=== PATIENT | female | born 1985 | race Caucasian/White ===

== ENCOUNTER 2016-07-24 08:57 | Emergency (ER) | payer MEDICAID ==
--- NOTE | 2016-07-24 10:22 | ER Document Report ---
ED GI/ - General Chief Complaint: Vaginal Bleeding Stated Complaint: VAGINAL BLEEDING Notes: Patient is a 31-year-old female presents emergency Department complaining of vaginal bleeding with clots for about 2 weeks. Patient states that she has a history of irregular. Her last one was in May lasting about 7 days. She also admits that she has abdominal pain with nausea, vomiting which is worse in the right lower side. Admits to diarrhea since yesterday without any evidence of dark stools. Able to tolerate food. 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 IN LAST 30 DAYS: No - Related Data Allergies/Adverse Reactions: ibuprofen [Ibuprofen] Allergy (Intermediate, Verified 07/24/16 09:15) lips swell Penicillins Allergy (Intermediate, Verified 07/24/16 09:15) rash Home Medications: Current Home Medications Clonazepam 2 mg PO BID 07/24/16 [History] Lurasidone HCl [Latuda] 40 mg PO DAILY 07/24/16 [History] Past Medical History - General Last Menstrual Period: 07/12/16 - Social History Smoking Status: Current Every Day Smoker Chew tobacco use (# tins/day): No Frequency of alcohol use: None Drug Abuse: None Family History: Hyperlipidemia, Hypertension Patient has suicidal ideation: No Patient has homicidal ideation: No Renal/ Medical History: Denies: Hx Peritoneal Dialysis Musculoskeltal Medical History: Reports Hx Musculoskeletal Trauma Psychiatric Medical History: Reports: Hx Bipolar Disorder, Hx Depression Past Surgical History: Reports: Hx Oral Surgery - [place] teeth remaining, Hx Tubal Ligation - x 2 - Immunizations Hx Diphtheria, Pertussis, Tetanus Vaccination: No - pt refused Review of Systems - Review of Systems Constitutional: No symptoms reported EENT: No symptoms reported Cardiovascular: No symptoms reported Respiratory: No symptoms reported Gastrointestinal: See HPI Genitourinary: See HPI Female Genitourinary: No symptoms reported Musculoskeletal: No symptoms reported Skin: No symptoms reported Hematologic/Lymphatic: No symptoms reported Neurological/Psychological: No symptoms reported Physical Exam - Vital signs Vitals: Temp Pulse Resp BP Pulse Ox 97.8 F 93 18 126/80 H 99 07/24/16 09:14 07/24/16 09:14 07/24/16 09:14 07/24/16 09:14 07/24/16 09:14 - Notes Notes: PHYSICAL EXAM GENERAL: Alert, interacts well. HEAD: Normocephalic, atraumatic. EYES: Pupils equal, round, and reactive to light. Extraocular movements intact. ENT: Oral mucosa moist, tongue midline. NECK: Full range of motion. Supple. Trachea midline. LUNGS: Clear to auscultation bilaterally, no wheezes, rales, or rhonchi. No respiratory distress. HEART: Regular rate and rhythm. No murmurs, gallops, or rubs. ABDOMEN: Soft, nondistended, nontender. No guarding, rebound, or rigidity.. Bowel sounds present in all 4 quadrants. FEMALE : Normal external exam. No evidence of lesions, lacerations, bruising or vesicles. Speculum exam normal cervix closed. No evidence of vaginal discharge with odor. No evidence of lesions. Evidence of vaginal bleeding. Bimanual exam normal no cervical motion tenderness. No adnexal mass or adnexal tenderness. EXTREMITIES: Moves all 4 extremities spontaneously. No edema, radial and dorsalis pedis pulses 2/4 bilaterally. No cyanosis. NEUROLOGICAL: Alert and oriented x3. Normal speech. PSYCH: Normal affect, normal mood. SKIN: Warm, dry, normal turgor. No rashes or lesions noted. Course - Re-evaluation Re-evalutation: 07/24/16 13:17 Patient is a 31-year-old female presents complaining of vaginal bleeding for 2 months. Pelvic reveals vaginal bleeding with no other concerns. Abdominal ultrasound does not reveal any evidence of uterine fibroids a small left ovarian cyst. Discharge patient home with diagnosis of dysfunctional uterine bleeding on Provera and can follow-up with ROLLER LEVELER OPERATOR this week. - Vital Signs Vital signs: Temp Pulse Resp BP Pulse Ox 97.8 F 93 18 126/80 H 99 07/24/16 09:14 07/24/16 09:14 07/24/16 09:21 07/24/16 09:14 07/24/16 09:14 - Laboratory Result Diagrams: 07/24/16 10:55 07/24/16 10:55 Laboratory results interpreted by me: 07/24/16 07/24/16 10:30 10:55 WBC 16.2 H RBC 5.35 H RDW 14.7 H Absolute Neutrophils 10.1 H Absolute Lymphocytes 4.8 H Urine Blood SMALL H - Diagnostic Test Radiology reviewed: Reports reviewed Discharge - Discharge Clinical Impression: Dysfunctional uterine bleeding Condition: Good Disposition: HOME, SELF-CARE Additional Instructions: VAGINAL BLEEDING: You are having an episode of abnormal bleeding. Causes of abnormal vaginal bleeding can include miscarriage or tubal , tumors such as cancer or benign fibroids, medication effects, or hormone imbalance. Testing can eliminate unsuspected , tumors, or infection as a cause. "Dysfunctional uterine bleeding" is due to hormone imbalance, and is especially common at times when the normal cycle is disturbed -- whether by recent , use of control pills or hormones, or impending menopause. If the bleeding is innocent, most commonly a short course of hormones is given to restore the uterus to normal. Sometimes, the normal menstrual cycle corrects itself naturally. Sometimes , brief hormone therapy, or even a D&C is required. Your physician will advise you. Treatment for anemia may be required if bleeding is severe. You should rest and avoid intercourse until the bleeding is controlled. Call the doctor or return for re-examination if you feel faint, have increasing pain, or have a major increase in the amount of bleeding. NORMAL EXAM AND WORKUP: At this time, except for vaginal bleeding, your examination and workup show no significant abnormality. No significant abnormal physical findings were noted. All laboratory, EKG, and imaging (x-ray, CT scans, ultrasound) studies that were ordered show no significant abnormality. Although your examination and all studies that were ordered showed no significant abnormal finding, there are no examinations and no studies that are 100% accurate. There is always the possibility that some abnormality could exist and not be detected with physical examination or within the limits and capabilities of laboratory and other studies. You should return or follow up as you were instructed on your visit today for further evaluation if your symptoms do not resolve. PROVERA: Provera (medroxyprogesterone) is usually used to stop excessive uterine bleeding or to regulate the periods. Provera is a form of progesterone, the hormone that stimulates the uterus lining to mature during the second half of your cycle. High doses of Provera can usually stop uterine bleeding. It's most useful for the abnormal bleeding that occurs when periods are irregular, such as around menopause. Provera usually isn't helpful for bleeding that occurs after Depo-Provera or Norplant. There is often another heavy "period" when you finish the Provera. Afterwards, the periods usually return to normal within a month or two. Contact your doctor if bleeding becomes more severe, or if you develop abdominal pain, lightheadedness, fever, or other new symptoms. FOLLOW-UP CARE: If you have been referred to a physician for follow-up care, call the physician s office for an appointment as you were instructed or within the next two days. If you experience worsening or a significant change in your symptoms (very heavy bleeding with large clots of blood, passage of tissue, more severe abdominal / pelvic pain or cramping, feeling faint or severe weakness, fever, etc.), notify the physician immediately or return to the Emergency Department at any time for re-evaluation. OBSTETRIC-GYNECOLOGIC ([facility]-FENCE ERECT[facility] SUPER[facility]) [facility] [place]: [facility] [address] [place] [address] [phone] Prescriptions: Medroxyprogesterone Acet [Provera 10 Mg Tablet] 10 mg PO DAILY #10 tablet Forms: Elevated Blood Pressure Referrals: GUI VENTURA MD [ACTIVE STAFF] - Follow up in 3-5 days
[2016-07-24 10:51] LABS: APPEARANCE,URINE CLEAR; BILIRUBIN,URINE NEGATIVE (NEGATIVE); GLUCOSE, URINE NEGATIVE (NEGATIVE); KETONES,URINE NEGATIVE (NEGATIVE); LEUKOCYTE ESTERASE,URINE NEGATIVE (NEGATIVE); NITRITE,URINE NEGATIVE (NEGATIVE); PROTEIN,URINE NEGATIVE (NEGATIVE); URINE SPECIFIC GRAVITY 1.018; UROBILINOGEN,URINE NEGATIVE mg/dL (<2.0)
[2016-07-24 11:14] LABS: ABSOLUTE BASOPHILS # (AUTO) 0.2 10^3/uL (0.0-0.2); ABSOLUTE EOSINOPHILS # (AUTO) 0.2 10^3/uL (0.0-0.6); ABSOLUTE LYMPHOCYTES (AUTO) 4.8 10^3/uL (0.5-4.7); ABSOLUTE MONOCYTES (AUTO) 0.8 10^3/uL (0.1-1.4); ABSOLUTE NEUT (AUTO) 10.1 10^3/uL (1.7-8.2); BASOPHILS % (AUTO) 1.1 % (0-2); EOSINOPHILS % (AUTO) 1.5 % (0-6); HEMATOCRIT 45.3 % (36.0-47.0); HGB HCT DIFFERENCE -0.3; LYMPHOCYTES % (AUTO) 29.7 % (13-45); MEAN CORPUSCULAR HEMOGLOBIN 28.1 pg (27.0-33.4); MEAN CORPUSCULAR HGB CONC 33.2 g/dL (32.0-36.0); MEAN CORPUSCULAR VOLUME 85 fl (80-97); MONOCYTES % (AUTO) 5.1 % (3-13); RED BLOOD COUNT 5.35 10^6/uL (3.72-5.28); RED CELL DISTRIBUTION WIDTH 14.7 % (11.5-14.0); SEGMENTED NEUTROPHILS % (AUTO) 62.6 % (42-78); WHITE BLOOD COUNT 16.2 10^3/uL (4.0-10.5)
[2016-07-24 11:26] LABS: ALANINE AMINOTRANSFERASE 46 U/L (9-52); ALBUMIN 3.5 g/dL (3.5-5.0); ALKALINE PHOSPHATASE 68 U/L (38-126); ANION GAP 11 (5-19); ASPARTATE AMINO TRANSFERASE 28 U/L (14-36); BILIRUBIN,TOTAL 0.3 mg/dL (0.2-1.3); BLOOD UREA NITROGEN 11 mg/dL (7-20); CALCIUM 9.6 mg/dL (8.4-10.2); CARBON DIOXIDE 22 mmol/L (22-30); CHLORIDE 107 mmol/L (98-107); CREATININE RESULT 0.78 mg/dL (0.52-1.25); GLUCOSE 86 mg/dL (75-110); LIPASE 101.6 U/L (23-300); POTASSIUM 4.2 mmol/L (3.6-5.0); SODIUM 139.7 mmol/L (137-145)
[2016-07-24 13:49] VITALS: BP 112/64
== END 2016-07-24 13:25 | disposition home or self-care (01) ==
LOC: ER 08:57
DX: N93.9 Abnormal uterine and vaginal bleeding, unspecified (principal); R19.7 Diarrhea, unspecified; Z79.899 Other long term (current) drug therapy; F17.210 Nicotine dependence, cigarettes, uncomplicated
CPT/HCPCS: 36415; 76830; 80053; 81001; 81025; 83690; 85025; 99284

== ENCOUNTER 2016-09-11 21:57 | Emergency (ER) | payer MEDICAID ==
[2016-09-12] MEDS ORDERED: ONDANSETRON ODT 4 MG TAB (6 TAB/DSPK) PO PRN
--- NOTE | 2016-09-12 00:04 | ER Document Report ---
ED General - General Chief Complaint: Nausea/Vomiting Stated Complaint: VOMITING,WEAKNESS Notes: Patient is a 31-year-old woman who presents with concerns of nausea, feeling of being dehydrated and significant sunburn to her face. States that she fell asleep outside history and woke up with a rash on her face. Since that time states she's felt generally unwell. Nothing improves or worsens her symptoms. No history of similar symptoms in the past. She has not seen her primary doctor regarding today's concerns. TRAVEL OUTSIDE OF THE [place] IN LAST 30 DAYS: No - Related Data Allergies/Adverse Reactions: ibuprofen [Ibuprofen] Allergy (Intermediate, Verified 09/11/16 22:17) lips swell Penicillins Allergy (Intermediate, Verified 09/11/16 22:17) rash Past Medical History - General Information source: Patient - Social History Smoking Status: Never Smoker Frequency of alcohol use: None Drug Abuse: None Lives with: Spouse/Significant other Family History: Hyperlipidemia, Hypertension Patient has suicidal ideation: No Patient has homicidal ideation: No Renal/ Medical History: Denies: Hx Peritoneal Dialysis Musculoskeltal Medical History: Reports Hx Musculoskeletal Trauma Psychiatric Medical History: Reports: Hx Bipolar Disorder, Hx Depression Past Surgical History: Reports: Hx Oral Surgery - [place] teeth remaining, Hx Tubal Ligation - x 2 - Immunizations Hx Diphtheria, Pertussis, Tetanus Vaccination: No - pt refused Review of Systems - Review of Systems Notes: Constitutional: Negative for fever. HENT: Negative for sore throat. Eyes: Negative for visual changes. Cardiovascular: Negative for chest pain. Respiratory: Negative for shortness of breath. Gastrointestinal: Negative for abdominal pain, vomiting or diarrhea. Positive for nausea Genitourinary: Negative for dysuria. Musculoskeletal: Negative for back pain. Skin: Positive for rash. Neurological: Negative for headaches, weakness or numbness. 10 point ROS negative except as marked above and in HPI. Physical Exam - Vital signs Vitals: Temp Pulse Resp BP Pulse Ox 98.2 F 98 20 136/92 H 99 09/11/16 22:17 09/11/16 22:17 09/11/16 22:17 09/11/16 22:17 09/11/16 22:17 Interpretation: Normal Notes: PHYSICAL EXAMINATION: GENERAL: Well-appearing, well-nourished and in no acute distress. HEAD: Atraumatic, normocephalic. EYES: Pupils equal round and reactive to light, extraocular movements intact, sclera anicteric, conjunctiva are normal. ENT: nares patent, oropharynx clear without exudates. Moist mucous membranes. NECK: Normal range of motion, supple without lymphadenopathy LUNGS: Breath sounds clear to auscultation bilaterally and equal. No wheezes rales or rhonchi. HEART: Regular rate and rhythm without murmurs ABDOMEN: Soft, nontender, normoactive bowel sounds. No guarding, no rebound. No masses appreciated. EXTREMITIES: Normal range of motion, no pitting or edema. No cyanosis. NEUROLOGICAL: No focal neurological deficits. Moves all extremities spontaneously and on command. PSYCH: Normal mood, normal affect. SKIN: Warm, Dry, normal turgor, sunburn over the face and lips. There is a small area of impetigo over the nasolabial fold Course - Re-evaluation Re-evalutation: 09/12/16 00:01 Patient presents with sunburn to the face with associated impetigo of her upper lip. I suspect her nausea is related to her degree of shannon to the face. Airway is patent. She is otherwise well appearing. No acute distress. Vitals within normal limits. Treat nausea with Zofran, mupirocin for impetigo and recommend close outpatient follow-up. At this time will discharge with return precautions and follow-up recommendations. Verbal discharge instructions given a the bedside and opportunity for questions given. Medication warnings reviewed. Patient is in agreement with this plan and has verbalized understanding of return precautions and the need for primary care follow-up in the next 24-72 hours. - Vital Signs Vital signs: Temp Pulse Resp BP Pulse Ox 97.8 F 97 18 127/87 H 99 09/12/16 00:51 09/12/16 00:51 09/12/16 00:51 09/12/16 00:51 09/12/16 00:51 Discharge - Discharge Clinical Impression: Sunburn, Impetigo Condition: Good Disposition: HOME, SELF-CARE Additional Instructions: Please apply the mupirocin 3 times daily. Keep hydrated. Take the Zofran that you been sent home with as needed for nausea. Return for confusion, fever greater than 100.4F, persistent vomiting, passing out, or any other symptoms that are worrisome to you. Prescriptions: Mupirocin 22 gm TP TID #22 oint..gm. Forms: Return to Work
[2016-09-12 04:25] VITALS: BP 127/87
== END 2016-09-12 00:55 | disposition home or self-care (01) ==
LOC: ER 21:57
DX: L01.00 Impetigo, unspecified (principal); L55.9 Sunburn, unspecified; R11.2 Nausea with vomiting, unspecified; R53.1 Weakness; R21 Rash and other nonspecific skin eruption; Z98.51 Tubal ligation status; Z88.6 Allergy status to analgesic agent; Z88.0 Allergy status to penicillin
CPT/HCPCS: 99282

== ENCOUNTER 2016-10-02 16:48 | Emergency (ER) | payer SELFPAY ==
[2016-10-02 16:57] VITALS: BP 130/90
--- NOTE | 2016-10-02 17:33 | ER Document Report ---
ED Medical Screen (RME) - General Chief Complaint: Syncope Stated Complaint: RIGHT SIDE NUMBNESS Time seen by provider: 17:31 Mode of Arrival: Wheelchair Information source: Patient TRAVEL OUTSIDE OF THE [place] IN LAST 30 DAYS: No - HPI Patient complains to provider of: right-sided neck pain with numbness and tingling Onset: This morning Onset/Duration: Gradual Quality of pain: Achy Severity: Moderate Pain Level: 3 Associated Symptoms: Body/muscle aches, Dizzy/lightheaded Exacerbated by: Denies Relieved by: Denies Similar symptoms previously: No Recently seen / treated by doctor: No Notes: 10/02/16 17:32 Patient is a 31-year-old female who presents to the emergency room complaining of right-sided neck pain with tingling sensation down the arm, symptoms started this morning shortly after she woke up, she also had a period of time where she states she could not feel the right side of her body, this has since resolved, patient reports 2 episodes throughout the day where she "blacked out", she did not collapse or fall to the floor, but the second time she was in the shower and she had to lean up against the wall to recompose herself, she denies any injury - Related Data Allergies/Adverse Reactions: ibuprofen [Ibuprofen] Allergy (Intermediate, Verified 09/11/16 22:17) lips swell Penicillins Allergy (Intermediate, Verified 09/11/16 22:17) rash Past Medical History - Social History Family history: DM, Hyperlipidemia, Hypertension Renal/ Medical History: Denies: Hx Peritoneal Dialysis Musculoskeltal Medical History: Reports Hx Musculoskeletal Trauma Psychiatric Medical History: Reports: Hx Bipolar Disorder, Hx Depression Past Surgical History: Reports: Hx Oral Surgery - [place] teeth remaining, Hx Tubal Ligation - x 2 - Immunizations Hx Diphtheria, Pertussis, Tetanus Vaccination: No - pt refused Physical Exam - Vital signs Vitals: Temp Pulse Resp BP Pulse Ox 98.5 F 95 16 130/90 H 98 10/02/16 16:55 10/02/16 16:55 10/02/16 16:55 10/02/16 16:55 10/02/16 16:55 Course - Vital Signs Vital signs: Temp Pulse Resp BP Pulse Ox 98.5 F 95 16 130/90 H 98 10/02/16 16:55 10/02/16 16:55 10/02/16 16:55 10/02/16 16:55 10/02/16 16:55
[2016-10-02] MEDS ORDERED: KETOROLAC TROMETHAMINE 60 MG/2 ML SDV IM ONE (17:38)
[2016-10-02] MEDS ORDERED: KETOROLAC TROMETHAMINE 60 MG/2 ML SDV ONE (17:39)
[2016-10-02 18:13] LABS: ABSOLUTE BASOPHILS # (AUTO) 0.1 10^3/uL (0.0-0.2); ABSOLUTE EOSINOPHILS # (AUTO) 0.1 10^3/uL (0.0-0.6); ABSOLUTE LYMPHOCYTES (AUTO) 3.9 10^3/uL (0.5-4.7); ABSOLUTE MONOCYTES (AUTO) 0.8 10^3/uL (0.1-1.4); ABSOLUTE NEUT (AUTO) 6.9 10^3/uL (1.7-8.2); BASOPHILS % (AUTO) 0.6 % (0-2); EOSINOPHILS % (AUTO) 1.2 % (0-6); HEMATOCRIT 49.7 % (36.0-47.0); HEMOGLOBIN 16.9 g/dL (12.0-15.5); MEAN CORPUSCULAR HEMOGLOBIN 28.2 pg (27.0-33.4); MEAN CORPUSCULAR VOLUME 83 fl (80-97); MONOCYTES % (AUTO) 6.9 % (3-13); RED BLOOD COUNT 5.98 10^6/uL (3.72-5.28); RED CELL DISTRIBUTION WIDTH 14.8 % (11.5-14.0); SEGMENTED NEUTROPHILS % (AUTO) 58.3 % (42-78); WHITE BLOOD COUNT 11.9 10^3/uL (4.0-10.5)
[2016-10-02 18:17] LABS: APPEARANCE,URINE SLIGHTLY-CLOUDY; BILIRUBIN,URINE NEGATIVE (NEGATIVE); GLUCOSE, URINE NEGATIVE (NEGATIVE); KETONES,URINE TRACE mg/dL (NEGATIVE); LEUKOCYTE ESTERASE,URINE TRACE (NEGATIVE); NITRITE,URINE NEGATIVE (NEGATIVE); PROTEIN,URINE NEGATIVE (NEGATIVE); UROBILINOGEN,URINE NEGATIVE mg/dL (<2.0)
[2016-10-02 18:33] LABS: ALANINE AMINOTRANSFERASE 50 U/L (9-52); ALBUMIN 4.4 g/dL (3.5-5.0); ALKALINE PHOSPHATASE 69 U/L (38-126); ANION GAP 12 (5-19); ASPARTATE AMINO TRANSFERASE 29 U/L (14-36); BILIRUBIN,DIRECT 0.2 mg/dL (0.0-0.4); BILIRUBIN,TOTAL 0.5 mg/dL (0.2-1.3); BLOOD UREA NITROGEN 11 mg/dL (7-20); CALCIUM 10.1 mg/dL (8.4-10.2); CARBON DIOXIDE 25 mmol/L (22-30); CHLORIDE 104 mmol/L (98-107); CREATINE KINASE 68 U/L (30-135); CREATININE RESULT 0.79 mg/dL (0.52-1.25); GLUCOSE 97 mg/dL (75-110); POTASSIUM 5.1 mmol/L (3.6-5.0); SODIUM 141.3 mmol/L (137-145); TOTAL PROTEIN 7.7 g/dL (6.3-8.2)
[2016-10-02 18:45] LABS: CREATINE KINASE MB 0.41 ng/mL (<4.55)
[2016-10-02 18:47] LABS: TROPONIN I < 0.012 ng/mL
--- NOTE | 2016-10-02 18:59 | EKG REPORT ---
SEVERITY:- BORDERLINE ECG - SINUS RHYTHM NONSPECIFIC ST-T CHANGES- INFERIOR LEADS : Confirmed by: Kit Helm MD 02-Oct-2016 18:58:34
[2016-10-02] MEDS ORDERED: NORMAL SALINE 1000 ML 1,000 ML IV ONE (19:15)
[2016-10-02] MEDS ORDERED: MORPHINE SULFATE 10 MG/ML INJ IV ONE (19:16)
--- NOTE | 2016-10-02 19:18 | ER Document Report ---
ED General - General Chief Complaint: Syncope Stated Complaint: RIGHT SIDE NUMBNESS Time seen by provider: 19:10 Mode of Arrival: Wheelchair Notes: Patient is a 31-year-old female that comes emergency department for chief complaint of feeling pain in her right upper back/shoulder and feeling general weakness on the right side of her body. She states that she feels like she cannot lift her right arm over head because of the pain. She denies any injuries. She has felt this way since this morning. She states that there've been a couple of times where she had blurred vision and felt like she was going to pass out. She states she leaned up against a wall and the shower to avoid doing so. She denies passing out. She denies chest pain, shortness of breath, fever, or history of the same. She takes less latuda and clonazapam for bipolar /anxiety. TRAVEL OUTSIDE OF THE [place] IN LAST 30 DAYS: No - Related Data Allergies/Adverse Reactions: ibuprofen [Ibuprofen] Allergy (Intermediate, Verified 09/11/16 22:17) lips swell Penicillins Allergy (Intermediate, Verified 09/11/16 22:17) rash Past Medical History - General Information source: Patient - Social History Smoking Status: Never Smoker Frequency of alcohol use: Occasional Drug Abuse: None Lives with: Family Family History: Hyperlipidemia, Hypertension Patient has suicidal ideation: No Patient has homicidal ideation: No Renal/ Medical History: Denies: Hx Peritoneal Dialysis Musculoskeltal Medical History: Reports Hx Musculoskeletal Trauma Psychiatric Medical History: Reports: Hx Bipolar Disorder, Hx Depression Past Surgical History: Reports: Hx Oral Surgery - [place] teeth remaining, Hx Tubal Ligation - x 2 - Immunizations Hx Diphtheria, Pertussis, Tetanus Vaccination: No - pt refused Review of Systems - Review of Systems Constitutional: No symptoms reported EENT: No symptoms reported Cardiovascular: No symptoms reported Respiratory: No symptoms reported Gastrointestinal: No symptoms reported Genitourinary: No symptoms reported Female Genitourinary: No symptoms reported Musculoskeletal: See HPI Skin: No symptoms reported Hematologic/Lymphatic: No symptoms reported Neurological/Psychological: See HPI Physical Exam - Vital signs Vitals: Temp Pulse Resp BP Pulse Ox 98.5 F 95 16 130/90 H 98 10/02/16 16:55 10/02/16 16:55 10/02/16 16:55 10/02/16 16:55 10/02/16 16:55 Interpretation: Normal - General General appearance: Appears well, Alert In distress: None - Patient is alert, well appearing, she winces with of her right arm/shoulder movement but is otherwise in no distress - HEENT Head: Normocephalic, Atraumatic Eyes: Normal Conjunctiva: Normal Extraocular movements intact: Yes Eyelashes: Normal Pupils: PERRL Nasal: Normal Mouth/Lips: Normal Mucous membranes: Normal Pharynx: Normal Neck: Normal - Respiratory Respiratory status: No respiratory distress Chest status: Nontender. No: Tender Breath sounds: Normal. No: Decreased air movement, Wheezing Chest palpation: Normal - Cardiovascular Rhythm: Regular. No: Tachycardia Heart sounds: Normal auscultation, S1 appreciated, S2 appreciated Murmur: No - Abdominal Inspection: Normal Distension: No distension Bowel sounds: Normal Tenderness: Nontender. No: Tender Organomegaly: No organomegaly - Back Back: Tender - There is tenderness in the right upper trapezius area with palpable muscle fibers which patient cries out when these are palpated, pain in the same area with range of motion of the shoulder, normal midline exam, no saddle anesthesia, normal upper and lower extremity strength, normal distal neurovascular exam - Extremities General upper extremity: Normal inspection, Nontender, Normal color, Normal ROM , Normal temperature General lower extremity: Normal inspection, Nontender, Normal color, Normal ROM , Normal temperature, Normal weight bearing. No: Marck's sign - Neurological Neuro grossly intact: Yes Cognition: Normal Orientation: AAOx4 [place] Coma Scale Eye Opening: Spontaneous [place] Coma Scale Verbal: Oriented [place] Coma Scale Motor: Obeys Commands [place] Coma Scale Total: 15 Speech: Normal Motor strength normal: LUE, RUE, LLE, RLE Sensory: Normal - Psychological Associated symptoms: Normal affect, Normal mood - Skin Skin Temperature: Warm Skin Moisture: Dry Skin Color: Normal Course - Re-evaluation Re-evalutation: EKG sinus rhythm with no T-wave abnormalities or ST segment abnormalities in consecutive leads. There is a single inverted T waves inferiorly, no chest pain. Normal QT interval, no evidence of Brugada. CBC, chemistry, cardiac enzymes generally unremarkable, urinalysis shows elevated specific gravity but is otherwise unremarkable. Dry mucous membranes, hemoglobin is elevated. Given IV fluids, patient has received Toradol from triage, give small amount of pain medicine as well. On reexamination patient is smiling, states she feels much better. Patient has what appears to be a muscle spasm of the right upper trapezius muscle with very tender area and palpable muscle fibers with painful movement of the right shoulder and right arm. Patient with normal sensation, normal distal neurovascular exam, normal temperature, unremarkable neurological exam. No acute concerning abnormalities noted, discussed treatment for dehydration and muscular pain with patient in detail, provided with a work excuse, discussed follow-up with primary care, discussed return precautions, patient states understanding and agreement. - Vital Signs Vital signs: Temp Pulse Resp BP Pulse Ox 98.5 F 95 16 130/90 H 98 10/02/16 16:55 10/02/16 16:55 10/02/16 16:55 10/02/16 16:55 10/02/16 16:55 - Laboratory Result Diagrams: 10/02/16 17:50 10/02/16 17:50 Laboratory results interpreted by me: 10/02/16 10/02/16 10/02/16 17:50 17:50 17:50 WBC 11.9 H RBC 5.98 H Hgb 16.9 H Hct 49.7 H RDW 14.8 H Potassium 5.1 H Urine Ketones TRACE H Ur Leukocyte Esterase TRACE H Discharge - Discharge Clinical Impression: Upper back pain on right side, Near syncope, Paresthesia Shoulder pain Qualifiers: Laterality: right Chronicity: acute Qualified Code(s): M25.511 - Pain in right shoulder Condition: Stable Disposition: HOME, SELF-CARE Additional Instructions: Examination is consistent with spasm of the trapezius muscle of the right side causing your symptoms. Take the muscle relaxer as prescribed, take the pain medication provided if needed especially to help you sleep, apply heat to the area, start performing gentle stretches to regain your range of motion. Your workup shows no acute abnormalities except for dehydration. You have also been treated for dehydration, please increase your hydration at home, follow-up with primary care for additional management. Return to the emergency department for any concerning or worsening symptoms. Prescriptions: Methocarbamol [Robaxin 750 mg Tablet] 750 mg PO Q6 #20 tablet Forms: Return to Work
[2016-10-02] MEDS ORDERED: HYDROCODONE/ACETAMINOPHEN 5-325 MG 6 TAB/DSPK PO PRN (20:32)
== END 2016-10-02 22:42 | disposition home or self-care (01) ==
LOC: ER 16:48
DX: M54.89 Other dorsalgia (principal); R55 Syncope and collapse; R20.0 Anesthesia of skin; M25.511 Pain in right shoulder; R53.1 Weakness; H53.8 Other visual disturbances; F31.9 Bipolar disorder, unspecified; F41.9 Anxiety disorder, unspecified; Z79.899 Other long term (current) drug therapy; Z88.0 Allergy status to penicillin; Z88.6 Allergy status to analgesic agent
CPT/HCPCS: 93005; 99285; 96372; 96361; 96374; 36415; 82553; 82550; 84703; 85025; 80053; 81001; 84484; 93010; J1885; J2270; J7030

== ENCOUNTER 2017-05-29 13:16 | Emergency (ER) | payer MEDICAID ==
[2017-05-29] MEDS ORDERED: LIDOCAINE 2% VISCOUS SOLN 20 ML UDCUP PO ONE (14:52)
[2017-05-29] MEDS ORDERED: CLINDAMYCIN HCL 150 MG CAPSULE PO ONE (14:52)
[2017-05-29] MEDS ORDERED: LIDOCAINE 1% INJ-PF (10 MG/ML) 30 ML SDV INJ ONE (14:52)
--- NOTE | 2017-05-29 15:00 | ER Document Report ---
ED Oral Problem - General Chief Complaint: Mouth Problem Stated Complaint: MOUTH PAIN Time Seen by Provider: 05/29/17 14:05 Mode of Arrival: Ambulatory Information source: Patient Notes: 31-year-old female presented to ED for complaint of right-sided mouth pain that started a couple days ago. She has a abscess to her lower jaw. TRAVEL OUTSIDE OF THE [place] IN LAST 30 DAYS: No - HPI Patient complains to provider of: Toothache Onset: Last week Onset: Gradual Quality of pain: Sharp, Throbbing Severity: Moderate Pain Level: 3 Associated symptoms: Toothache Worsened by: Cold Relieved by: Nothing Similar symptoms previously: Yes Recently seen / treated by doctor/dentist: No - Related Data Allergies/Adverse Reactions: ibuprofen [Ibuprofen] Allergy (Intermediate, Verified 05/29/17 13:17) lips swell Penicillins Allergy (Intermediate, Verified 05/29/17 13:17) rash Past Medical History - General Information source: Patient - Social History Smoking Status: Current Every Day Smoker Cigarette use (# per day): Yes - One half pack per day Chew tobacco use (# tins/day): No Smoking Education Provided: Yes - 3 minutes Frequency of alcohol use: None Drug Abuse: None Occupation: [employer] Lives with: Family Family History: CAD, COPD, CVA, DM, Hyperlipidemia, Hypertension, Thyroid Disfunction. denies: Malignancy Patient has suicidal ideation: No Patient has homicidal ideation: No - Past Medical History Cardiac Medical History: Reports: None Pulmonary Medical History: Reports: None EENT Medical History: Reports: None Neurological Medical History: Reports: None Endocrine Medical History: Reports: None Renal/ Medical History: Reports: None Malignancy Medical History: Reports: None GI Medical History: Reports: None Musculoskeltal Medical History: Reports Hx Musculoskeletal Trauma Skin Medical History: Reports None Psychiatric Medical History: Reports: Hx Bipolar Disorder, Hx Depression Traumatic Medical History: Reports: None Infectious Medical History: Reports: None Past Surgical History: Reports: Hx Oral Surgery - [place] teeth remaining, Hx Tubal Ligation - Immunizations Hx Diphtheria, Pertussis, Tetanus Vaccination: No - pt refused Review of Systems - Review of Systems Constitutional: No symptoms reported EENT: Mouth pain, Dental problem Cardiovascular: No symptoms reported Respiratory: No symptoms reported Gastrointestinal: No symptoms reported Genitourinary: No symptoms reported Female Genitourinary: No symptoms reported Musculoskeletal: No symptoms reported Skin: No symptoms reported Hematologic/Lymphatic: No symptoms reported Neurological/Psychological: No symptoms reported -: Yes All other systems reviewed and negative Physical Exam - Vital signs Vitals: Temp Pulse Resp BP Pulse Ox 97.9 F 89 16 130/86 H 100 05/29/17 13:20 05/29/17 13:20 05/29/17 13:20 05/29/17 13:20 05/29/17 13:20 Interpretation: Normal - General General appearance: Appears well, Alert - HEENT Head: Normocephalic, Atraumatic Eyes: Normal Pupils: PERRL Ears: Normal External canal: Normal Tympanic membrane: Normal Sinus: Normal Nasal: Normal Mouth/Lips: Caries Teeth diagram: 1 - Dental pain with a cavity. Small abscess in front of the tooth Pharynx: Normal Neck: Normal - Respiratory Respiratory status: No respiratory distress Chest status: Nontender Breath sounds: Normal Chest palpation: Normal - Cardiovascular Rhythm: Regular Heart sounds: Normal auscultation Murmur: No - Abdominal Inspection: Normal Distension: No distension Bowel sounds: Normal Tenderness: Nontender Organomegaly: No organomegaly - Back Back: Normal, Nontender - Extremities General upper extremity: Normal inspection, Nontender, Normal color, Normal ROM , Normal temperature General lower extremity: Normal inspection, Nontender, Normal color, Normal ROM , Normal temperature, Normal weight bearing. No: Marck's sign - Neurological Neuro grossly intact: Yes Cognition: Normal Orientation: AAOx4 [place] Coma Scale Eye Opening: Spontaneous [place] Coma Scale Verbal: Oriented [place] Coma Scale Motor: Obeys Commands [place] Coma Scale Total: 15 Speech: Normal Motor strength normal: LUE, RUE, LLE, RLE Sensory: Normal - Psychological Associated symptoms: Normal affect, Normal mood - Skin Skin Temperature: Warm Skin Moisture: Dry Skin Color: Normal Course - Re-evaluation Re-evalutation: 05/29/17 15:26 Patient was treated with viscous lidocaine and then an 18-gauge needle was used to inject the area with lidocaine and then open the abscess. After the abscess was opened and pus was expressed then patient was encouraged to gargle with warm water in the emergency room and discharged home with instructions to use warm salt water. A dental block was done to help with the pain. She was also treated with clindamycin and discharged home with prescription for clindamycin. Patient was instructed to follow-up with her primary doctor. Patient was given a syringe of viscous lidocaine to take home to use as needed for the pain. - Vital Signs Vital signs: Temp Pulse Resp BP Pulse Ox 98.0 F 89 20 132/91 H 98 05/29/17 15:16 05/29/17 15:16 05/29/17 15:16 05/29/17 15:16 05/29/17 15:16 Discharge - Discharge Clinical Impression: Dental abscess, Pain due to dental caries Condition: Stable Disposition: HOME, SELF-CARE Additional Instructions: TOOTHACHE: Your pain is due to dental decay. The tooth must be repaired in order for you to feel better. You will, therefore, be referred to a dentist. We do not have dentists on the staff at [facility]. Severe swelling or drainage around a tooth usually means a dental abscess. This also requires evaluation and treatment by the dentist, but antibiotics may be prescribed while awaiting dental treatment. You should be rechecked immediately if you develop major swelling of the face, increasing pain, a lump in the jaw or gums, headache, difficulty swallowing, or fever. CLINDAMYCIN: You have been given a prescription for the antibiotic clindamycin. It is often prescribed for infections in the mouth, such as dental infections or abscesses, and for skin infections due to MRSA. It's important that you take all the medication, unless instructed otherwise by your physician. Failure to complete the entire course can result in relapse of your condition. Common side effects of antibiotics include nausea, intestinal cramping, or diarrhea. Women may develop vaginal yeast infections, and babies can get yeast (thrush) in the mouth following the use of antibiotics. Contact your physician if you develop significant side effects from this medication. Allergy to this antibiotic can result in hives, wheezing, faintness, or itching. If symptoms of allergy occur, stop the medication and call the doctor. FOLLOW-UP CARE: You have been referred for follow-up care to the dentists listed below. Call the dentists office for an appointment as you were instructed or within the next two days. If you experience worsening or a significant change in your symptoms, notify the physician immediately or return to the Emergency Department at any time for re-evaluation. [facility] [address] [place], [place] mornings, by appointment [facility] [address] [place] [address] [facility] [place] [address] [facility] [address] [facility] [address] [email or web address] [address] [place] [address] Friday- 8:00am to 5:00 pm Will see patients from other [facility]. Charges based on income and family size and accepts Medicare, Medicaid, and Insurances Will pull molars [facility] Student [facility] [id number] Hours of Operation 8:00 am - 4:30 pm weekdays The following dental offices accept Medicaid: [facility] Dr. Ariza Dr. Benz Dr. Talavera Dr. Colon Piyush Porter Lutsavage, and [facility] Dr. Triana ([place]) Dr. Rodriguez ([place]) [facility] Drs. Duenas ([place]) Dr. Silver ([place]) [facility] Dr. Angel ([place]) Drs. Gonzales and ([place]) Medicaid Care Line Prescriptions: Clindamycin HCl 300 mg PO Q6 #28 capsule Forms: Elevated Blood Pressure, Smoking Cessation Education, Return to Work Referrals: MISSY GOODMAN DO [Primary Care Provider] - Follow up as needed
[2017-05-29 15:19] VITALS: BP 132/91
== END 2017-05-29 15:20 | disposition home or self-care (01) ==
LOC: ER 13:16
PROC: 0C9XXZ0 Drainage of Lower Tooth, External Approach, Single (ICD-10-PCS; principal; 2017-05-29)
DX: K04.7 Periapical abscess without sinus (principal); K02.9 Dental caries, unspecified; K08.89 Other specified disorders of teeth and supporting structures; M27.2 Inflammatory conditions of jaws; F17.210 Nicotine dependence, cigarettes, uncomplicated
CPT/HCPCS: 99282; 41800; J3490 ×3

== ENCOUNTER 2017-06-01 16:38 | Emergency (ER) | payer MEDICAID ==
[2017-06-01] MEDS ORDERED: KETOROLAC TROMETHAMINE 60 MG/2 ML SDV IM ONE (17:53)
[2017-06-01] MEDS ORDERED: ONDANSETRON 4 MG TAB.RAPDIS PO ONE (17:53)
--- NOTE | 2017-06-01 17:55 | ER Document Report ---
ED Medical Screen (RME) - General Chief Complaint: Upper Abdominal Pain Stated Complaint: SIDE PAIN Time Seen by Provider: 06/01/17 17:49 Notes: 31-year-old female patient woke up at o'clock this morning with right upper quadrant abdominal pain going into her back. There is some nausea and vomiting with this. She does have a low-grade fever here in the emergency room. Last menstrual period was 05/02/2017, she has had her tubes tied and her periods are irregular. Brief exam shows right upper quadrant abdominal tenderness on palpation. I have greeted and performed a rapid initial assessment of this patient. A comprehensive ED assessment and evaluation of the patient, analysis of test results and completion of the medical decision making process will be conducted by additional ED providers. TRAVEL OUTSIDE OF THE [place] IN LAST 30 DAYS: No - Related Data Allergies/Adverse Reactions: ibuprofen [Ibuprofen] Allergy (Intermediate, Verified 05/29/17 13:17) lips swell Penicillins Allergy (Intermediate, Verified 05/29/17 13:17) rash Home Medications: Current Home Medications No Home Medications 06/01/17 [History] Past Medical History - Social History Chew tobacco use (# tins/day): No Frequency of alcohol use: None Drug Abuse: None Family history: DM, Hyperlipidemia, Hypertension Renal/ Medical History: Denies: Hx Peritoneal Dialysis Musculoskeltal Medical History: Reports Hx Musculoskeletal Trauma Psychiatric Medical History: Reports: Hx Bipolar Disorder, Hx Depression Past Surgical History: Reports: Hx Oral Surgery - [place] teeth remaining, Hx Tubal Ligation - Immunizations Hx Diphtheria, Pertussis, Tetanus Vaccination: No - pt refused Physical Exam - Vital signs Vitals: Temp Pulse Resp BP Pulse Ox 100.1 F 126 H 22 H 111/71 98 06/01/17 17:10 06/01/17 17:10 06/01/17 17:10 06/01/17 17:10 06/01/17 17:10 Course - Vital Signs Vital signs: Temp Pulse Resp BP Pulse Ox 100.1 F 126 H 22 H 111/71 98 06/01/17 17:10 06/01/17 17:10 06/01/17 17:10 06/01/17 17:10 06/01/17 17:10
[2017-06-01 19:34] LABS: HEMATOCRIT 53.5 % (36.0-47.0); HEMOGLOBIN 17.9 g/dL (12.0-15.5); MEAN CORPUSCULAR HEMOGLOBIN 28.4 pg (27.0-33.4); MEAN CORPUSCULAR HGB CONC 33.5 g/dL (32.0-36.0); MEAN CORPUSCULAR VOLUME 85 fl (80-97); PLATELET COUNT 355 10^3/uL (150-450); RED BLOOD COUNT 6.32 10^6/uL (3.72-5.28); RED CELL DISTRIBUTION WIDTH 14.8 % (11.5-14.0); WHITE BLOOD COUNT 16.9 10^3/uL (4.0-10.5)
--- NOTE | 2017-06-01 19:34 | RADIOLOGY REPORT (SQ) ---
EXAM DESCRIPTION: U/S ABDOMEN LIMITED W/O DOP COMPLETED DATE/TIME: 06/01/2017 7:22 pm REASON FOR STUDY: RUQ pain, N V, fever COMPARISON: None. TECHNIQUE: Dynamic and static grayscale images acquired of the abdomen and recorded on PACS. Additio nal selected color Doppler and spectral images recorded. LIMITATIONS: None. FINDINGS: PANCREAS: No masses. Visualized pancreatic duct normal caliber. LIVER: No masses. Echotexture normal. LIVER VASCULATURE: Normal blood flow was identified in the portal vein. GALLBLADDER: No stones. Normal wall thickness. No pericholecystic fluid. ULTRASOUND-DETECTED BLANCAS'S SIGN: Negative. INTRAHEPATIC DUCTS AND COMMON DUCT: CBD and intrahepatic ducts normal caliber. No filling defects. INFERIOR VENA CAVA: Normal flow. AORTA: No aneurysm. RIGHT KIDNEY: Normal size. Normal echogenicity. No solid or suspicious masses. No hydronephrosis. No calcifications. PERITONEAL AND RIGHT PLEURAL SPACE: No ascites or effusions. OTHER: No other significant findings. IMPRESSION: NORMAL RIGHT UPPER QUADRANT ULTRASOUND. TECHNICAL DOCUMENTATION: JOB ID: [id number]- All Rights Reserved
[2017-06-01 19:44] LABS: AMORPHOUS SEDIMENT,URINE TRACE /HPF; APPEARANCE,URINE SLIGHTLY-CLOUDY; BILIRUBIN,URINE NEGATIVE (NEGATIVE); COLOR,URINE YELLOW; GLUCOSE, URINE NEGATIVE (NEGATIVE); KETONES,URINE 20 mg/dL (NEGATIVE); LEUKOCYTE ESTERASE,URINE SMALL (NEGATIVE); NITRITE,URINE NEGATIVE (NEGATIVE); PROTEIN,URINE NEGATIVE (NEGATIVE); URINE SPECIFIC GRAVITY 1.029; UROBILINOGEN,URINE NEGATIVE mg/dL (<2.0)
[2017-06-01 19:53] LABS: ABSOLUTE LYMPHOCYTES# (MANUAL) 0.8 10^3/uL (0.5-4.7); ABSOLUTE MONOCYTES # (MANUAL) 0.2 10^3/uL (0.1-1.4); ABSOLUTE NEUTROPHILS# (MANUAL) 15.9 10^3/uL (1.7-8.2); BASOPHILS % (MANUAL) 0 % (0-2); EOSINOPHILS % (MANUAL) 0 % (0-6); LYMPHOCYTES % (MANUAL) 5 % (13-45); MONOCYTES % (MANUAL) 1 % (3-13); SEGMENTED NEUTROPHILS % (MAN) 94 % (42-78); TOTAL CELLS COUNTED 100
[2017-06-01 19:55] LABS: ANISOCYTOSIS SLIGHT; PLATELET COMMENT ADEQUATE; PLATELET LARGE PRESENT; POLYCHROMASIA SLIGHT
[2017-06-01 20:29] LABS: ALANINE AMINOTRANSFERASE 36 U/L (9-52); ALBUMIN 4.1 g/dL (3.5-5.0); ALKALINE PHOSPHATASE 65 U/L (38-126); ANION GAP 14 (5-19); ASPARTATE AMINO TRANSFERASE 18 U/L (14-36); BILIRUBIN,DIRECT 0.2 mg/dL (0.0-0.4); BILIRUBIN,TOTAL 0.5 mg/dL (0.2-1.3); BLOOD UREA NITROGEN 16 mg/dL (7-20); CALCIUM 9.6 mg/dL (8.4-10.2); CARBON DIOXIDE 22 mmol/L (22-30); CHLORIDE 102 mmol/L (98-107); GLUCOSE 122 mg/dL (75-110); LIPASE 105.4 U/L (23-300); POTASSIUM 4.2 mmol/L (3.6-5.0); SODIUM 138.1 mmol/L (137-145); TOTAL PROTEIN 7.5 g/dL (6.3-8.2)
[2017-06-01] MEDS: NORMAL SALINE 1000 ML 1,000 ML IV PRN ×2 (20:41→20:43)
[2017-06-01] MEDS ORDERED: DICYCLOMINE HCL INJ 20 MG/2 ML AMPULE IM ONE (21:33)
--- NOTE | 2017-06-01 22:01 | ER Document Report ---
ED General - General Chief Complaint: Upper Abdominal Pain Stated Complaint: SIDE PAIN Time Seen by Provider: 06/01/17 17:49 TRAVEL OUTSIDE OF THE [place] IN LAST 30 DAYS: No - HPI Patient complains to provider of: Nausea vomiting diarrhea abdominal pain Notes: Patient coming in for abdominal pain right upper quadrant nausea vomiting diarrhea ongoing for approximately last 24-48 hours. Patient states last time she has something to eat was fried chicken. Patient denies any abdominal surgeries. Upon my evaluation patient sitting up and now looks comfortable. Patient states symptoms has improved since receiving medications from triage. Denies any recent travel denies any recent antibiotics. - Related Data Allergies/Adverse Reactions: ibuprofen [Ibuprofen] Allergy (Intermediate, Verified 05/29/17 13:17) lips swell Penicillins Allergy (Intermediate, Verified 05/29/17 13:17) rash Past Medical History - Social History Smoking Status: Current Every Day Smoker Chew tobacco use (# tins/day): No Frequency of alcohol use: None Drug Abuse: None Family History: CAD, COPD, CVA, DM, Hyperlipidemia, Hypertension, Thyroid Disfunction. denies: Malignancy Patient has suicidal ideation: No Patient has homicidal ideation: No Renal/ Medical History: Denies: Hx Peritoneal Dialysis Musculoskeltal Medical History: Reports Hx Musculoskeletal Trauma Psychiatric Medical History: Reports: Hx Bipolar Disorder, Hx Depression Past Surgical History: Reports: Hx Oral Surgery - [place] teeth remaining, Hx Tubal Ligation - Immunizations Hx Diphtheria, Pertussis, Tetanus Vaccination: No - pt refused Review of Systems - Review of Systems Constitutional: No symptoms reported EENT: No symptoms reported Cardiovascular: No symptoms reported Respiratory: No symptoms reported Gastrointestinal: Abdominal pain, Diarrhea, Nausea, Vomiting Genitourinary: No symptoms reported Female Genitourinary: No symptoms reported Musculoskeletal: No symptoms reported Skin: No symptoms reported Hematologic/Lymphatic: No symptoms reported Neurological/Psychological: No symptoms reported -: Yes All other systems reviewed and negative Physical Exam - Vital signs Vitals: Temp Pulse Resp BP Pulse Ox 100.1 F 126 H 22 H 111/71 98 06/01/17 17:10 06/01/17 17:10 06/01/17 17:10 06/01/17 17:10 06/01/17 17:10 Interpretation: Normal - General General appearance: Appears well, Alert - HEENT Head: Normocephalic, Atraumatic Eyes: Normal Pupils: PERRL - Respiratory Respiratory status: No respiratory distress Chest status: Nontender Breath sounds: Normal Chest palpation: Normal - Cardiovascular Rhythm: Regular Heart sounds: Normal auscultation Murmur: No - Abdominal Inspection: Normal Distension: No distension Bowel sounds: Normal Tenderness: Nontender Organomegaly: No organomegaly - Back Back: Normal, Nontender - Extremities General upper extremity: Normal inspection, Nontender, Normal color, Normal ROM , Normal temperature General lower extremity: Normal inspection, Nontender, Normal color, Normal ROM , Normal temperature, Normal weight bearing. No: Marck's sign - Neurological Neuro grossly intact: Yes Cognition: Normal Orientation: AAOx4 [place] Coma Scale Eye Opening: Spontaneous [place] Coma Scale Verbal: Oriented [place] Coma Scale Motor: Obeys Commands [place] Coma Scale Total: 15 Speech: Normal Motor strength normal: LUE, RUE, LLE, RLE Sensory: Normal - Psychological Associated symptoms: Normal affect, Normal mood - Skin Skin Temperature: Warm Skin Moisture: Dry Skin Color: Normal Course - Re-evaluation Re-evalutation: 06/02/17 01:51 The patient presents with abdominal pain without signs of peritonitis or other life-threatening or serious etiology. The patient appears stable for discharge and has been instructed to return immediately if the symptoms worsen in any way , or in 8-12hr if not improved for re-evaluation. The patient has been instructed to return if the symptoms worsen or change in any way. - Vital Signs Vital signs: Temp Pulse Resp BP Pulse Ox 98.5 F 75 18 124/78 98 06/01/17 22:10 06/01/17 22:10 06/01/17 22:10 06/01/17 22:10 06/01/17 22:10 - Laboratory Result Diagrams: 06/01/17 18:16 06/01/17 20:02 Laboratory results interpreted by me: 06/01/17 06/01/17 06/01/17 18:16 18:16 20:02 WBC 16.9 H RBC 6.32 H Hgb 17.9 H Hct 53.5 H RDW 14.8 H Seg Neuts % (Manual) 94 H Lymphocytes % (Manual) 5 L Monocytes % (Manual) 1 L Abs Neuts (Manual) 15.9 H Glucose 122 H Urine Ketones 20 H Urine Blood SMALL H Ur Leukocyte Esterase SMALL H Discharge - Discharge Clinical Impression: Nausea vomiting and diarrhea, Abdominal cramping Condition: Good Disposition: HOME, SELF-CARE Instructions: Abdominal Pain ([facility]), Gastroenteritis (adult) ([facility]) Additional Instructions: Your evaluation is consistent with a viral gastroenteritis. This causes nausea vomiting diarrhea. This can cause significant abdominal cramping. He may take medication as prescribed. Bentyl for pain Phenergan or Zofran for nausea vomiting. Please make sure he stay well hydrated. Symptoms may last for 48 to hours to 7 days. Prescriptions: Dicyclomine HCl [Bentyl 20 mg Tablet] 20 mg PO QID #20 tablet Ondansetron [Zofran Odt 4 mg Tablet] 1 tab PO Q4H PRN #30 tab.rapdis PRN Reason: For Nausea/Vomiting Promethazine HCl [Phenergan 25 mg Tablet] 25 mg PO ASDIR PRN #20 tablet PRN Reason: Forms: Return to Work Referrals: MISSY GOODMAN DO [Primary Care Provider] - Follow up as needed
[2017-06-01 22:10] VITALS: BP 124/78
== END 2017-06-01 22:10 | disposition home or self-care (01) ==
LOC: ER 16:38
DX: R10.10 Upper abdominal pain, unspecified (principal); R11.2 Nausea with vomiting, unspecified; R19.7 Diarrhea, unspecified; F17.200 Nicotine dependence, unspecified, uncomplicated
CPT/HCPCS: 99284; 96372; 96360; 36415; 83690; 85025; 81025; 80053; 81001; 76705; J0500; J1885; S0119; J7030